=== PATIENT | female | born 1970 | race Caucasian/White ===

== ENCOUNTER → 2016-08-10 | Outpatient (CLI) | payer BC ==
[~2016-08-10] MED LIST: ALLEGRA-D 12 HO1 TER PO; COLACE100 MG PO; MVI; PREDNISONE20 MG PO; TEGRETOL 2200 MG/TAB PO; VITAMIN B12 PO
== END ==
LOC: MC.RAD 13:52
DX: Z12.31 Encounter for screening mammogram for malignant neoplasm of breast (principal)

== ENCOUNTER → 2019-09-21 | Outpatient (CLI) | payer BC | LOC: ZCOL.LAB 16:26 | DX: Z20.828 Contact with and (suspected) exposure to other viral communicable diseases (principal) ==

== ENCOUNTER → 2020-02-18 | Outpatient (CLI) | payer BC | LOC: MC.RAD 09:00 | DX: N60.01 Solitary cyst of right breast (principal); N60.02 Solitary cyst of left breast ==

== ENCOUNTER → 2020-11-28 | Outpatient (CLI) | payer BC | LOC: MC.RAD 13:56 | DX: N60.01 Solitary cyst of right breast (principal); N60.02 Solitary cyst of left breast ==

== ENCOUNTER 2022-06-23 14:14 | Observation (INO) | payer BC ==
[~2022-06-23] VITALS: Ht 160 cm; Wt 81.8 kg
[~2022-06-23 14:14] MED LIST changes: +TEGRETOL 2200 MG/TA1 PO; -TEGRETOL 2200 MG/TAB PO
[2022-06-23 15:15] LABS: BASO % 0.4 % (0.0-2.0); EOS # 0.3 K/mm3 (0.0-0.7); EOS % 2.5 % (0.0-4.0); GRAN # 7.8 K/mm3 (1.4-6.5); GRAN % 76.9 % (42.2-75.2); HEMATOCRIT 45.1 % (37.0-47.0); HEMOGLOBIN 15.2 g/dl (12.5-16.0); LYMPH # 1.1 K/mm3 (1.2-3.4); MEAN CELL VOLUME 89 fl (80.0-100.0); MEAN CORPUSCULAR HEMOGLOBIN 30 pg (27-31); MEAN CORPUSCULAR HGB CONC 34 g/dl (33.0-37.0); MEAN PLATELET VOLUME 10.1 fl (7.4-10.4); MONO # 0.9 K/mm3 (0.1-0.6); PLATELET COUNT 206 K/mm3 (130-400); RED BLOOD COUNT 5.08 M/mm3 (4.10-5.30); REDCELL DISTRIBUTION WIDTH-CV 12.2 % (11.5-14.5)
[2022-06-23 15:31] LABS: ALBUMIN 4.5 gm/dL (3.5-5.0); BILIRUBIN,TOTAL 0.7 mg/dL (0.2-1.2); C-REACTIVE PROTEIN 1.49 mg/dL (0.00-0.50); CALCIUM 9.9 mg/dL (8.4-10.2); CREATININE, serum 0.74 mg/dL (0.57-1.11); POTASSIUM 3.5 mmol/L (3.5-4.5); TOTAL PROTEIN 7.5 gm/dL (6.2-8.1)
[2022-06-23 16:34] LABS: COLLECTION METHOD CLEAN CATCH
[2022-06-23 16:43] LABS: URINE APPEARANCE Clear (CLEAR/HAZY); URINE COLOR Yellow (YELLOW)
[2022-06-23 16:44] LABS: URINE BLOOD Negative (NEGATIVE); URINE GLUCOSE Negative (NEGATIVE); URINE KETONE 1+ (NEGATIVE); URINE NITRATE Negative (NEGATIVE); URINE PROTEIN(semi-quant) 1+ (NEGATIVE); URINE UROBILINOGEN 0.2 E.U/dL (0.2-1.0)
[2022-06-23 16:47] LABS: MUCOUS Present (NOT PRESENT); SQUAMOUS EPITHELIAL 0-2 /hpf (0-10); URINE BACTERIA Rare /hpf (NONE SEEN); URINE RBC 0-2 /hpf (0-2)
--- NOTE | 2022-06-23 17:58 | NUR ---
Patient arrived to the unit from ER via chair, alert and oriented x4. Lungs CTA. IV levaquin infusing at 10oml/hr. Bowel sounds presents . Patient reports of mild epigastric pain and rated pain level 3/10. Patient describes pain as b burning sensation and intermittently. Patient denies of feeling nauseou. VSS. Patient oriented to room and the use of call martinez. Family member at the bedside.
[2022-06-23] MEDS ORDERED: ADULT MULTIVIT1 EACH PO (18:10)
[2022-06-23 18:20] VITALS: BP 122/70; PULSE 70; TEMP 99.2
[2022-06-23 19:23] VITALS: BP 122/71; PULSE 78; TEMP 98.5
[2022-06-23] MEDS ORDERED: PROAIR HFA0.09 MG/AC IH (20:59)
[2022-06-23 21:00] VITALS: BP_SYST 133
[2022-06-23] MEDS ORDERED: PROZAC 20MG20 MG PO (21:00)
[2022-06-23] MEDS ORDERED: SINGULAIR 110 MG/TAB PO (21:01)
[2022-06-23] MEDS ORDERED: FLONASEALLERGY NS (21:01)
[2022-06-23] MEDS ORDERED: HCTZ 25MG TAB25 MG PO (21:02)
[2022-06-23 23:24] VITALS: BP 133/57; PULSE 81; TEMP 98.7
[2022-06-24 00:30] VITALS: BP_SYST 133
[2022-06-24 00:40] LABS: HEMATOCRIT 40.6 % (37.0-47.0); HEMOGLOBIN 13.8 g/dl (12.5-16.0)
--- NOTE | 2022-06-24 02:14 | NUR ---
Shift assessment performed- see documentation. She is on room air. She was originally stating that she was not in pain, just discomfort from peristalsis. Around 2239 she was then complaining that she was expiriencing a lot of gas pain. I called and spoke to MARTA Vale who ordered PRN simethicone. This was administered as ordered- see eMar. She has been sleeping comfortably since then.
[2022-06-24 03:43] VITALS: BP 112/62; PULSE 81; TEMP 97.8
[2022-06-24 05:30] VITALS: BP_SYST 112
--- NOTE | 2022-06-24 07:38 | NUR ---
Report received from the night nurse, JOSE Jeter.
[2022-06-24 07:48] LABS: ALBUMIN 3.6 gm/dL (3.5-5.0); CALCIUM 8.9 mg/dL (8.4-10.2); CREATININE, serum 0.68 mg/dL (0.57-1.11); MAGNESIUM 1.9 mg/dL (1.6-2.6); PHOSPHOROUS 2.4 mg/dL (2.3-4.7); POTASSIUM 3.9 mmol/L (3.5-4.5)
--- NOTE | 2022-06-24 07:49 | NUR ---
Patient resting in bed reports of abdominal gas, but no bloody stools.IVF of NS infusing at 75ml. Patient was concern on when she can have GI consult. Patient was informed no GI provider weatherization operations manager for the until Saturday. Patient verbalized understanding and will discuss with the Hospitalist if she can be discharged home.
[2022-06-24 07:55] LABS: BASO % 0.3 % (0.0-2.0); EOS # 0.3 K/mm3 (0.0-0.7); GRAN # 6.8 K/mm3 (1.4-6.5); GRAN % 70.2 % (42.2-75.2); HEMATOCRIT 40.5 % (37.0-47.0); HEMOGLOBIN 13.5 g/dl (12.5-16.0); LYMPH # 1.6 K/mm3 (1.2-3.4); MEAN CELL VOLUME 90 fl (80.0-100.0); MEAN CORPUSCULAR HEMOGLOBIN 30 pg (27-31); MEAN CORPUSCULAR HGB CONC 33 g/dl (33.0-37.0); MEAN PLATELET VOLUME 10.7 fl (7.4-10.4); MONO % 10.2 % (1.7-9.3); PLATELET COUNT 186 K/mm3 (130-400); RED BLOOD COUNT 4.48 M/mm3 (4.10-5.30); REDCELL DISTRIBUTION WIDTH-CV 12.4 % (11.5-14.5)
[2022-06-24 08:04] VITALS: BP 111/59; PULSE 72; TEMP 98
[2022-06-24 09:00] VITALS: BP_SYST 111
--- NOTE | 2022-06-24 10:09 | NUR ---
Patient awake in bed, IVF infusing without difficulty. Patient reports of abdominal gas and mild discomfort at the epigastric area. Patient states she hasn't had any bloody stools since admission to the floor. Patient anticpating to be discharged since there's no GI consult coverage until next Saturday.
[2022-06-24] MEDS ORDERED: GAS AID MAXIMU125 MG PO (11:15)
[2022-06-24] MEDS ORDERED: PROTONIX 40MG T40 MG PO (11:16)
[2022-06-24] MEDS ORDERED: ZOFRAN 4MG T4 MG/TAB PO (11:17)
[2022-06-24] MEDS ORDERED: FLAGYL500 MG PO (11:22)
[2022-06-24] MEDS ORDERED: CIPRO 500MG TA500 MG PO (11:22)
--- NOTE | 2022-06-24 12:11 | NUR ---
Manager Interventional rounds: Manager Interventional visit offered; Patient declined. She stated that she had had a difficult night and would like to take a nap. As Manager Interventional was leaving, a FLUID DYNAMICIST was asking about the tray in the Patient's room. Manager Interventional went back into room to recover the tray. Manager Interventional wished Patient a restful nap.
--- NOTE | 2022-06-24 12:30 | NUR ---
Pt. with discharge orders. Gave and reviewed discharge paperwork with the pt. Pt. voices under standing. INT taken out by JOSE Wong. Pt. denies further needs. Pt. escorted out by this nurse.
[2022-06-24 12:47] LABS: HEMATOCRIT 40.2 % (37.0-47.0); HEMOGLOBIN 13.8 g/dl (12.5-16.0)
== END 2022-06-24 12:30 | disposition home or self-care (01) ==
LOC: COL.ER 14:14 → SURG 16:34
PROVIDERS: Nurse Practitioner; ADMIT Internal Medicine
DX: K52.9 Noninfective gastroenteritis and colitis, unspecified (principal); K92.1 Melena; I10 Essential (primary) hypertension; R56.9 Unspecified convulsions; Z79.899 Other long term (current) drug therapy
CPT/HCPCS: C9113; G0378; J1956; J7030; Q9967